=== PATIENT | female | born 1940 | race Caucasian/White ===

== ENCOUNTER 2018-02-02 07:30 | Inpatient (IN) | payer OTHER ==
[~2018-02-02] VITALS: Ht 157.5 cm; Wt 89.8 kg
[~2018-02-02 07:30] MED LIST: ALLO300T47 PO; ASPI-859 PO; CITA20SO PO; DITXL5 PO; FENO160 PO; LOSA50TA3 PO; NEU300 PO; OMEP20CA10 PO; TRAZ-126 PO
[2018-02-02] MEDS ORDERED: oxyCODONE HCL 10 MG TAB.ER.12H PO ONE ×3 (07:40→08:02)
[2018-02-02] MEDS ORDERED: GABAPENTIN 300 MG CAPSULE PO ONE (07:40)
[2018-02-02] MEDS ORDERED: ACETAMINOPHEN 500 MG TABLET PO ONE (07:40)
[2018-02-02] MEDS ORDERED: NACL 0.9% 1,000 ML IV ONE (07:40)
[2018-02-02] MEDS ORDERED: TRANEXAMIC ACID 650 MG TABLET PO ONE (07:40)
[2018-02-02] MEDS ORDERED: CEFAZOLIN 2 GM IVPB PREMIX 50 ML IV ONE ×2 (07:40→07:41)
[2018-02-02] MEDS ORDERED: CELECOXIB 200 MG CAPSULE PO ONE (07:40)
[2018-02-02] MEDS ORDERED: TRANEXAMIC ACID 650 MG TABLET ONE (07:42)
[2018-02-02] MEDS ORDERED: ACETAMINOPHEN 500 MG TABLET ONE (07:42)
[2018-02-02] MEDS ORDERED: GABAPENTIN 300 MG CAPSULE ONE (07:43)
[2018-02-02] MEDS ORDERED: CELECOXIB 200 MG CAPSULE ONE (07:43)
[2018-02-02] MEDS ORDERED: ROPIVACAINE 0.2% 550 ML INJ SCH ×2 (09:23→10:56)
[2018-02-02] MEDS ORDERED: CEFAZOLIN 1 GM IVPB PREMIX 50 ML IV SCH (09:30)
[2018-02-02] MEDS ORDERED: MORPHINE 4 MG/ML INJ. SYRINGE IVP PRN (09:30)
[2018-02-02] MEDS ORDERED: KETOROLAC TROMETHAMINE 15 MG VIAL IVP PRN ×2 (09:30)
[2018-02-02] MEDS ORDERED: PROMETHAZINE HCL 25 MG/ML AMP IVP PRN (09:30)
[2018-02-02] MEDS ORDERED: oxyCODONE HCL 5 MG TABLET PO PRN (09:30)
[2018-02-02] MEDS ORDERED: DIPHENHYDRAMINE HCL 25 MG CAPSULE PO PRN (09:30)
[2018-02-02] MEDS ORDERED: ONDANSETRON HCL 4 MG/2 ML VIAL IVP PRN ×3 (09:30→11:00)
[2018-02-02] MEDS ORDERED: SENNOSIDES 8.6 MG TABLET PO PRN (09:30)
[2018-02-02] MEDS ORDERED: TRANEXAMIC ACID 1,000 MG/10 ML VIAL IV ONE (09:35)
[2018-02-02] MEDS ORDERED: NS 100 ML BAG IV ONE (09:35)
[2018-02-02] MEDS ORDERED: LR 1,000 ML IV.SOLN IV ONE (09:35)
[2018-02-02] MEDS ORDERED: KETOROLAC TROMETHAMINE 30 MG VIAL IVP ONE (09:35)
[2018-02-02] MEDS ORDERED: MIDAZOLAM HCL 5 MG/5 ML VIAL IVP ONE (09:35)
[2018-02-02] MEDS ORDERED: EPINEPHrine 1 MG/ML AMP IV ONE (09:35)
[2018-02-02] MEDS ORDERED: MORPHINE SULFATE 10MG/10ML PF AMP EP ONE (09:35)
[2018-02-02] MEDS ORDERED: ROPIVACAINE HCL/PF 5 MG/ML 0.5% 30 ML VIAL INJ ONE (09:35)
[2018-02-02] MEDS ORDERED: BUPIVACAINE /PF 0.75% 10 ML VIAL INJ ONE (09:35)
[2018-02-02] MEDS ORDERED: VANCOMYCIN HCL 1000 MG/VIAL IV ONE (09:35)
[2018-02-02] MEDS ORDERED: POLYMYXIN 500,000/BACIT.10,000 UNITS in NS IRR 1 L IR ONE (10:03)
[2018-02-02] MEDS ORDERED: DIPHENHYDRAMINE INJ 50 MG/ML VIAL IVP PRN (11:00)
[2018-02-02] MEDS ORDERED: KETOROLAC TROMETHAMINE 30 MG VIAL IVP PRN (11:00)
[2018-02-02] MEDS ORDERED: OXYCODONE/ACETAMINOPHEN *10*mg/325 mg TABLET PO PRN (11:00)
[2018-02-02] MEDS ORDERED: NALBUPHINE HCL 10 MG/ML AMP IVP PRN (11:00)
[2018-02-02] MEDS ORDERED: fentaNYL CITRATE/PF 100 MCG/2 ML AMP IVP PRN ×2 (11:00)
[2018-02-02 13:14] VITALS: BP_SYST 130
[2018-02-02 13:25] VITALS: BP_SYST 130
[2018-02-02] MEDS: D5LR 1,000 ML IV SCH (14:49)
[2018-02-02] MEDS: ACETAMINOPHEN 500 MG TABLET PO SCH ×2 (14:51→21:06)
[2018-02-02] MEDS: CEFAZOLIN 1 GM IVPB PREMIX 50 ML IV SCH ×2 (14:58→21:06)
[2018-02-02 16:12] VITALS: BP_SYST 131
[2018-02-02] MEDS ORDERED: RIVAROXABAN 10 MG TABLET PO ONE (18:15)
[2018-02-02 20:12] VITALS: BP_SYST 141
[2018-02-02] MEDS ORDERED: GABAPENTIN 300 MG CAPSULE PO SCH (21:00)
[2018-02-02] MEDS: GABAPENTIN 300 MG CAPSULE PO SCH (21:06)
[2018-02-02] MEDS: OXYBUTYNIN CHLORIDE 5 MG TABLET PO SCH (21:07)
[2018-02-02] MEDS: CELECOXIB 200 MG CAPSULE PO SCH (21:07)
[2018-02-03] VITALS: BP_SYST 110
[2018-02-03] MEDS: oxyCODONE HCL 5 MG TABLET PO PRN ×2 (00:52→20:32)
[2018-02-03] MEDS: D5LR 1,000 ML IV SCH ×2 (00:54→15:33)
[2018-02-03] MEDS: CEFAZOLIN 1 GM IVPB PREMIX 50 ML IV SCH (05:32)
[2018-02-03] MEDS: OMEPRAZOLE 20 MG CAPSULE.DR (PriLOSEC) PO SCH (05:56)
[2018-02-03 07:24] LABS: BASOPHILS % (AUTO) 0.4 % (0.0-2.0); EOSINOPHILS # (AUTO) 0.1 K/uL (0.0-0.4); EOSINOPHILS % (AUTO) 1.8 % (0.0-4.0); HEMOGLOBIN 10.8 g/dL (12.0-16.0); LYMPHOCYTES # (AUTO) 0.7 K/uL (1.0-5.5); MEAN CORPUSCULAR HEMOGLOBIN 32 pg (27-31); MEAN CORPUSCULAR HGB CONC 34 % (32-36); MEAN CORPUSCULAR VOLUME 96 fL (79.0-98.0); MONOCYTES # (AUTO) 0.8 K/uL (0.0-1.0); MONOCYTES % (AUTO) 10.6 % (1.7-9.3); NEUTROPHILS # (AUTO) 5.7 K/uL (1.8-7.7); NEUTROPHILS % (AUTO) 78.2 % (40.0-70.0); PLATELET COUNT (AUTO) 226 K/uL (130-430); RED BLOOD CELL COUNT(AUTO) 3.33 MIL/uL (4.2-6.2); RED CELL DISTRIBUTION WIDTH 12.3 % (9.0-15.0); WHITE BLOOD COUNT (AUTO) 7.3 K/uL (4.8-10.8)
[2018-02-03 07:30] LABS: ANION GAP 5 (5-15); CALCIUM 8.6 mg/dL (8.4-11.0); CHLORIDE 104 mmol/L (98-107); CREATININE 1.72 mg/dL (0.55-1.30); GLUCOSE 155 mg/dL (70-99); POTASSIUM 4.7 mmol/L (3.5-5.1); SODIUM SERUM 140 mmol/L (136-145); UREA NITROGEN, BLOOD 33 mg/dL (8-21)
[2018-02-03 08:50] VITALS: BP_SYST 107
[2018-02-03] MEDS: FENOFIBRATE 160 MG TABLET PO SCH (09:17)
[2018-02-03] MEDS: traZODone HCL 50 MG TABLET (DESYREL) PO SCH (09:19)
[2018-02-03] MEDS: GABAPENTIN 300 MG CAPSULE PO SCH ×2 (09:19→20:32)
[2018-02-03] MEDS: ALLOPURINOL 300 MG TABLET (ZYLOPRIM) PO SCH (09:20)
[2018-02-03] MEDS: CELECOXIB 200 MG CAPSULE PO SCH ×2 (09:20→20:31)
[2018-02-03] MEDS: CITALOPRAM HYDROBROMIDE 20 MG TABLET PO SCH (09:20)
[2018-02-03] MEDS: OXYBUTYNIN CHLORIDE 5 MG TABLET PO SCH ×2 (09:25→20:33)
[2018-02-03] MEDS: ACETAMINOPHEN 500 MG TABLET PO SCH ×3 (09:26→20:32)
[2018-02-03] MEDS ORDERED: RIVAROXABAN 10 MG TABLET PO ONE (10:00)
[2018-02-03] MEDS: RIVAROXABAN 10 MG TABLET PO SCH (10:38)
[2018-02-03 12:38] VITALS: BP_SYST 126
[2018-02-03] MEDS: LOSARTAN POTASSIUM 50 MG TABLET (COZAAR) PO SCH (15:27)
[2018-02-03 16:16] VITALS: BP_SYST 135
[2018-02-03 20:00] VITALS: BP_SYST 127
[2018-02-04] MEDS: D5LR 1,000 ML IV SCH ×2 (00:01)
[2018-02-04 01:24] VITALS: BP_SYST 107
[2018-02-04] MEDS: OMEPRAZOLE 20 MG CAPSULE.DR (PriLOSEC) PO SCH (06:28)
[2018-02-04] MEDS: oxyCODONE HCL 5 MG TABLET PO PRN (06:28)
[2018-02-04 06:42] LABS: ANION GAP 2 (5-15); CALCIUM 8.5 mg/dL (8.4-11.0); CHLORIDE 103 mmol/L (98-107); CREATININE 1.82 mg/dL (0.55-1.30); GLUCOSE 140 mg/dL (70-99); SODIUM SERUM 137 mmol/L (136-145); UREA NITROGEN, BLOOD 29 mg/dL (8-21)
[2018-02-04 07:06] LABS: BASOPHILS % (AUTO) 0.4 % (0.0-2.0); EOSINOPHILS # (AUTO) 0.3 K/uL (0.0-0.4); EOSINOPHILS % (AUTO) 3.1 % (0.0-4.0); HEMATOCRIT 29.7 % (36-48); LYMPHOCYTES # (AUTO) 1.1 K/uL (1.0-5.5); LYMPHOCYTES % (AUTO) 14.1 % (20.5-51.5); MEAN CORPUSCULAR HEMOGLOBIN 32 pg (27-31); MEAN CORPUSCULAR HGB CONC 34 % (32-36); MEAN CORPUSCULAR VOLUME 95 fL (79.0-98.0); MONOCYTES # (AUTO) 1.1 K/uL (0.0-1.0); MONOCYTES % (AUTO) 13.4 % (1.7-9.3); NEUTROPHILS # (AUTO) 5.6 K/uL (1.8-7.7); PLATELET COUNT (AUTO) 197 K/uL (130-430); RED BLOOD CELL COUNT(AUTO) 3.12 MIL/uL (4.2-6.2); RED CELL DISTRIBUTION WIDTH 12.6 % (9.0-15.0); WHITE BLOOD COUNT (AUTO) 8.1 K/uL (4.8-10.8)
[2018-02-04 08:00] VITALS: BP_SYST 138
[2018-02-04] MEDS: ACETAMINOPHEN 500 MG TABLET PO SCH (09:25)
[2018-02-04] MEDS: traZODone HCL 50 MG TABLET (DESYREL) PO SCH (09:26)
[2018-02-04] MEDS: ALLOPURINOL 300 MG TABLET (ZYLOPRIM) PO SCH (09:27)
[2018-02-04] MEDS: LOSARTAN POTASSIUM 50 MG TABLET (COZAAR) PO SCH (09:27)
[2018-02-04] MEDS: OXYBUTYNIN CHLORIDE 5 MG TABLET PO SCH (09:27)
[2018-02-04] MEDS: CELECOXIB 200 MG CAPSULE PO SCH (09:27)
[2018-02-04] MEDS: CITALOPRAM HYDROBROMIDE 20 MG TABLET PO SCH (09:27)
[2018-02-04] MEDS: GABAPENTIN 300 MG CAPSULE PO SCH (09:27)
[2018-02-04] MEDS: FENOFIBRATE 160 MG TABLET PO SCH (09:29)
[2018-02-04] MEDS: RIVAROXABAN 10 MG TABLET PO SCH (09:29)
[2018-02-04 12:41] VITALS: BP_SYST 119
[2018-02-04 12:50] VITALS: BP_SYST 119
== END 2018-02-04 13:30 | disposition home health service (06) | DRG 470 ==
LOC: SMU 07:30 → STU 12:59
PROVIDERS: ADMIT Orthopaedic Surgery; ATTEND Orthopaedic Surgery
PROC: 0SRC0J9 Replacement of Right Knee Joint with Synthetic Substitute, Cemented, Open Approach (ICD-10-PCS; principal; 2018-02-02 09:30)
DX: M17.11 Unilateral primary osteoarthritis, right knee (principal); M25.761 Osteophyte, right knee; I12.9 Hypertensive chronic kidney disease with stage 1 through stage 4 chronic kidney disease, or unspecified chronic kidney disease; N18.3 Chronic kidney disease, stage 3 (moderate); E66.9 Obesity, unspecified; Z68.36 Body mass index [BMI] 36.0-36.9, adult
CPT/HCPCS: 36415; 80048; 85025; 87081; 88305; 88311; 94010; 94760; 97039; 97110-GP; 97116-GP; 97530-GP; 97535-GP; C1713; C1776; J0171; J0690; J1885; J2250; J2274; J2795; J3370; J3490; J7120

== ENCOUNTER 2022-03-09 01:56 | Inpatient (IN) | payer OTHER ==
[~2022-03-09] VITALS: Ht 162.6 cm; Wt 81.6 kg
[~2022-03-09 01:56] MED LIST changes: +ALLO-57 PO; -ALLO300T47 PO; -ASPI-859 PO; -CITA20SO PO; +CITA20SO2 PO; -OMEP20CA10 PO; +OMEP20CA15 PO; -TRAZ-126 PO; +TRAZ-251 PO
[2022-03-09 02:15] VITALS: BP_SYST 157
[2022-03-09 05:25] LABS: ANION GAP 9 (5-15); CALCIUM 9.2 mg/dL (8.4-11.0); CHLORIDE 89 mmol/L (98-107); CREATININE 1.08 mg/dL (0.55-1.30); GLUCOSE 138 mg/dL (70-99); POTASSIUM 4.1 mmol/L (3.5-5.1); UREA NITROGEN, BLOOD 10 mg/dL (8-21)
[2022-03-09 05:26] LABS: BASOPHILS % (AUTO) 0.3 % (0.0-2.0); HEMATOCRIT 36.1 % (36-48); LYMPHOCYTES # (AUTO) 0.6 K/uL (1.0-5.5); LYMPHOCYTES % (AUTO) 3.6 % (20.5-51.5); MEAN CORPUSCULAR VOLUME 95 fL (79.0-98.0); MONOCYTES # (AUTO) 1.6 K/uL (0.0-1.0); MONOCYTES % (AUTO) 9.9 % (1.7-9.3); NEUTROPHILS # (AUTO) 13.8 K/uL (1.8-7.7); NEUTROPHILS % (AUTO) 86.2 % (40.0-70.0); PLATELET COUNT (AUTO) 271 K/uL (130-430); RED BLOOD CELL COUNT(AUTO) 3.82 MIL/uL (4.2-6.2); RED CELL DISTRIBUTION WIDTH 13.1 % (9.0-15.0)
[2022-03-09 05:33] LABS: ALANINE AMINOTRANSFERASE 33 U/L (12-78); ALBUMIN 2.6 g/dL (3.4-4.8); ASPARTATE AMINOTRANSFERASE 38 U/L (10-37); TOTAL BILIRUBIN 0.8 mg/dL (0.0-1.0)
[2022-03-09] MEDS ORDERED: IPRATROPIUM/ALBUTEROL SULFATE 3 ML AMPUL.NEB (DUONEB) INH ONE (05:45)
[2022-03-09] MEDS ORDERED: AZITHROMYCIN 250 MG TABLET PO ONE (05:45)
[2022-03-09] MEDS ORDERED: cefTRIAXone 1 GM IVPB PREMIX 50 ML IV ONE (05:45)
[2022-03-09 05:50] LABS: ALCOHOL, BLOOD < 3 mg/dL (<10)
[2022-03-09] MEDS ORDERED: ASPI-1393 PO (06:04)
[2022-03-09] MEDS ORDERED: LIP10 PO (06:05)
[2022-03-09] MEDS ORDERED: PROMETHAZINE HCL/CODEINE 6.25-10 mg/5 mL UDC PO ONE (06:45)
[2022-03-09 10:15] LABS: BILIRUBIN,URINE NEGATIVE (NEGATIVE); BLOOD, URINE 2+ (NEGATIVE); CLARITY/URINE CLEAR (CLEAR); COLOR,URINE YELLOW (YELLOW); GLUCOSE,URINE NEGATIVE (NEGATIVE); KETONES,URINE NEGATIVE (NEGATIVE); LEUKOCYTE ESTERASE ,URINE NEGATIVE (NEGATIVE); NITRITE, URINE NEGATIVE (NEGATIVE); PH,URINE 6.5 (5.0-8.0); PROTEIN URINE NEGATIVE (NEGATIVE)
[2022-03-09 10:38] LABS: BACTERIA,URINE FEW /HPF (None Seen); WBC,URINE 0-3 /HPF (0-3)
[2022-03-09] MEDS ORDERED: NACL 0.9% 1,000 ML IV SCH (10:45)
[2022-03-09 15:40] LABS: ANION GAP 8 (5-15); CALCIUM 9.1 mg/dL (8.4-11.0); CHLORIDE 91 mmol/L (98-107); CREATININE 0.94 mg/dL (0.55-1.30); GLUCOSE 125 mg/dL (70-99); POTASSIUM 4.1 mmol/L (3.5-5.1); UREA NITROGEN, BLOOD 12 mg/dL (8-21)
[2022-03-09 20:30] VITALS: BP_SYST 153
[2022-03-09 20:59] VITALS: BP_SYST 153
[2022-03-09] MEDS ORDERED: cefTRIAXone 1 GM IVPB PREMIX 50 ML IV SCH (21:00)
[2022-03-09] MEDS: GABAPENTIN 300 MG CAPSULE PO SCH (21:49)
[2022-03-09] MEDS: NACL 0.9% 1,000 ML IV SCH (21:50)
[2022-03-10] VITALS (10 sets, daily range): BP systolic 130–187
[2022-03-10] MEDS ORDERED: cloNIDine HCL 0.1 MG TABLET PO ONE (02:45)
[2022-03-10 08:29] LABS: BASOPHILS % (AUTO) 0.4 % (0.0-2.0); EOSINOPHILS # (AUTO) 0.3 K/uL (0.0-0.4); EOSINOPHILS % (AUTO) 2.8 % (0.0-4.0); HEMATOCRIT 31.2 % (36-48); LYMPHOCYTES % (AUTO) 9.2 % (20.5-51.5); MEAN CORPUSCULAR VOLUME 94 fL (79.0-98.0); MONOCYTES % (AUTO) 9.4 % (1.7-9.3); NEUTROPHILS # (AUTO) 8.2 K/uL (1.8-7.7); NEUTROPHILS % (AUTO) 78.2 % (40.0-70.0); PLATELET COUNT (AUTO) 270 K/uL (130-430); RED BLOOD CELL COUNT(AUTO) 3.31 MIL/uL (4.2-6.2); RED CELL DISTRIBUTION WIDTH 12.8 % (9.0-15.0); WHITE BLOOD COUNT (AUTO) 10.5 K/uL (4.8-10.8)
[2022-03-10] MEDS ORDERED: traZODone HCL 50 MG TABLET (DESYREL) PO SCH (09:00)
[2022-03-10] MEDS ORDERED: OMEPRAZOLE Non-Formulary 20 MG CAPSULE.DR PO SCH (09:00)
[2022-03-10 09:05] LABS: ALANINE AMINOTRANSFERASE 49 U/L (12-78); ALBUMIN 1.9 g/dL (3.4-4.8); ANION GAP 7 (5-15); ASPARTATE AMINOTRANSFERASE 62 U/L (10-37); CALCIUM 8.9 mg/dL (8.4-11.0); CHLORIDE 95 mmol/L (98-107); CREATININE 0.87 mg/dL (0.55-1.30); GLUCOSE 93 mg/dL (70-99); POTASSIUM 4.3 mmol/L (3.5-5.1); THYROID STIMULATING HORMONE 0.82 uIu/mL (0.36-3.74); TOTAL BILIRUBIN 0.5 mg/dL (0.0-1.0); UREA NITROGEN, BLOOD 11 mg/dL (8-21)
[2022-03-10] MEDS: GABAPENTIN 300 MG CAPSULE PO SCH ×2 (09:14→20:41)
[2022-03-10] MEDS: ATORVASTATIN 10 MG TABLET PO SCH (09:14)
[2022-03-10] MEDS: ALLOPURINOL 300 MG TABLET (ZYLOPRIM) PO SCH (09:14)
[2022-03-10] MEDS: ASPIRIN 81 MG TABLET(ECOTRIN) PO SCH (09:14)
[2022-03-10] MEDS: CITALOPRAM HYDROBROMIDE 20 MG TABLET PO SCH (09:14)
[2022-03-10] MEDS: PANTOPRAZOLE SODIUM 40 MG TAB PO SCH (09:14)
[2022-03-10] MEDS: traZODone HCL 50 MG TABLET (DESYREL) PO SCH (09:15)
[2022-03-10 09:55] LABS: CHOLESTEROL 117 mg/dL (<200); HDL CHOLESTEROL 54 mg/dL (>55); LDL CHOLESTEROL 52 mg/dL (<100); TRIGLYCERIDES 45 mg/dL (30-150)
[2022-03-10] MEDS ORDERED: IPRATROPIUM/ALBUTEROL SULFATE 3 ML AMPUL.NEB (DUONEB) INH ONE (12:00)
[2022-03-10] MEDS: NACL 0.9% 1,000 ML IV SCH (13:00)
[2022-03-10] MEDS: guaiFENesin/DEXTROMETHORPHAN 10 ML UDC PO PRN ×2 (13:07→20:46)
[2022-03-10] MEDS: IPRATROPIUM/ALBUTEROL SULFATE 3 ML AMPUL.NEB (DUONEB) INH SCH ×2 (15:19→23:22)
[2022-03-10] MEDS: cefTRIAXone 1 GM IVPB PREMIX 50 ML IV SCH (20:41)
[2022-03-10] MEDS: AZITHROMYCIN 500 MG in NS 250 ML IV SCH (22:10)
[2022-03-11] VITALS: BP_SYST 156
[2022-03-11] MEDS: IPRATROPIUM/ALBUTEROL SULFATE 3 ML AMPUL.NEB (DUONEB) INH SCH ×6 (05:56→23:06)
[2022-03-11 08:00] VITALS: BP_SYST 161
[2022-03-11] MEDS: traZODone HCL 50 MG TABLET (DESYREL) PO SCH (08:40)
[2022-03-11] MEDS: ATORVASTATIN 10 MG TABLET PO SCH (08:40)
[2022-03-11] MEDS: PANTOPRAZOLE SODIUM 40 MG TAB PO SCH (08:40)
[2022-03-11] MEDS: CITALOPRAM HYDROBROMIDE 20 MG TABLET PO SCH (08:40)
[2022-03-11] MEDS: ALLOPURINOL 300 MG TABLET (ZYLOPRIM) PO SCH (08:40)
[2022-03-11] MEDS: GABAPENTIN 300 MG CAPSULE PO SCH ×2 (08:40→20:47)
[2022-03-11] MEDS: ASPIRIN 81 MG TABLET(ECOTRIN) PO SCH (08:40)
[2022-03-11 11:31] VITALS: BP_SYST 175
[2022-03-11 13:55] LABS: ANION GAP 5 (5-15); CALCIUM 8.8 mg/dL (8.4-11.0); CHLORIDE 92 mmol/L (98-107); CREATININE 0.98 mg/dL (0.55-1.30); GLUCOSE 112 mg/dL (70-99); POTASSIUM 4.5 mmol/L (3.5-5.1); UREA NITROGEN, BLOOD 12 mg/dL (8-21)
[2022-03-11 15:29] VITALS: BP_SYST 177
[2022-03-11] MEDS ORDERED: hydrALAZINE HCL 20 MG/ML VIAL IVP PRN (16:45)
[2022-03-11 17:00] VITALS: BP_SYST 144
[2022-03-11] MEDS: cefTRIAXone 1 GM IVPB PREMIX 50 ML IV SCH (20:47)
[2022-03-11] MEDS: AZITHROMYCIN 500 MG in NS 250 ML IV SCH (22:16)
[2022-03-12] MEDS: IPRATROPIUM/ALBUTEROL SULFATE 3 ML AMPUL.NEB (DUONEB) INH SCH ×6 (03:00→23:21)
[2022-03-12 06:17] VITALS: BP_SYST 140
[2022-03-12 08:26] VITALS: BP_SYST 155
[2022-03-12] MEDS: GABAPENTIN 300 MG CAPSULE PO SCH ×2 (09:32→20:48)
[2022-03-12] MEDS: CITALOPRAM HYDROBROMIDE 20 MG TABLET PO SCH (09:32)
[2022-03-12] MEDS: ATORVASTATIN 10 MG TABLET PO SCH (09:32)
[2022-03-12] MEDS: ASPIRIN 81 MG TABLET(ECOTRIN) PO SCH (09:33)
[2022-03-12] MEDS: PANTOPRAZOLE SODIUM 40 MG TAB PO SCH (09:33)
[2022-03-12] MEDS: ALLOPURINOL 300 MG TABLET (ZYLOPRIM) PO SCH (09:33)
[2022-03-12] MEDS: traZODone HCL 50 MG TABLET (DESYREL) PO SCH (09:33)
[2022-03-12 11:42] VITALS: BP_SYST 154
[2022-03-12 15:58] VITALS: BP_SYST 159
[2022-03-12 20:33] VITALS: BP_SYST 175
[2022-03-12 20:37] VITALS: BP_SYST 173
[2022-03-12] MEDS: cefTRIAXone 1 GM IVPB PREMIX 50 ML IV SCH (20:48)
[2022-03-12] MEDS ORDERED: amLODIPine BESYLATE 5 MG TABLET PO ONE (22:15)
[2022-03-12] MEDS: AZITHROMYCIN 500 MG in NS 250 ML IV SCH (22:42)
[2022-03-13 01:10] VITALS: BP_SYST 162
[2022-03-13] MEDS: IPRATROPIUM/ALBUTEROL SULFATE 3 ML AMPUL.NEB (DUONEB) INH SCH ×6 (03:37→23:26)
[2022-03-13 08:00] VITALS: BP_SYST 164
[2022-03-13 08:56] LABS: ANION GAP 5 (5-15); CALCIUM 9.4 mg/dL (8.4-11.0); CHLORIDE 99 mmol/L (98-107); CREATININE 0.82 mg/dL (0.55-1.30); GLUCOSE 114 mg/dL (70-99); POTASSIUM 4.1 mmol/L (3.5-5.1); UREA NITROGEN, BLOOD 8 mg/dL (8-21)
[2022-03-13] MEDS: traZODone HCL 50 MG TABLET (DESYREL) PO SCH (09:45)
[2022-03-13] MEDS: PANTOPRAZOLE SODIUM 40 MG TAB PO SCH (09:45)
[2022-03-13] MEDS: CITALOPRAM HYDROBROMIDE 20 MG TABLET PO SCH (09:45)
[2022-03-13] MEDS: ASPIRIN 81 MG TABLET(ECOTRIN) PO SCH (09:45)
[2022-03-13] MEDS: GABAPENTIN 300 MG CAPSULE PO SCH ×2 (09:46→21:00)
[2022-03-13] MEDS: ATORVASTATIN 10 MG TABLET PO SCH (09:46)
[2022-03-13 11:31] VITALS: BP_SYST 154
[2022-03-13] MEDS: ALLOPURINOL 300 MG TABLET (ZYLOPRIM) PO SCH (13:37)
[2022-03-13 15:28] VITALS: BP_SYST 167
[2022-03-13 20:00] VITALS: BP_SYST 160
[2022-03-13] MEDS: cefTRIAXone 1 GM IVPB PREMIX 50 ML IV SCH (21:00)
[2022-03-13] MEDS: AZITHROMYCIN 500 MG in NS 250 ML IV SCH (22:00)
[2022-03-14] MEDS: IPRATROPIUM/ALBUTEROL SULFATE 3 ML AMPUL.NEB (DUONEB) INH SCH ×4 (03:00→15:30)
[2022-03-14 08:00] VITALS: BP_SYST 146
[2022-03-14] MEDS: CITALOPRAM HYDROBROMIDE 20 MG TABLET PO SCH (08:52)
[2022-03-14] MEDS: ALLOPURINOL 300 MG TABLET (ZYLOPRIM) PO SCH (08:52)
[2022-03-14] MEDS: traZODone HCL 50 MG TABLET (DESYREL) PO SCH (08:53)
[2022-03-14] MEDS: PANTOPRAZOLE SODIUM 40 MG TAB PO SCH (08:53)
[2022-03-14] MEDS: ASPIRIN 81 MG TABLET(ECOTRIN) PO SCH (08:53)
[2022-03-14] MEDS: ATORVASTATIN 10 MG TABLET PO SCH (08:53)
[2022-03-14] MEDS: GABAPENTIN 300 MG CAPSULE PO SCH (08:53)
[2022-03-14 12:00] VITALS: BP_SYST 177
[2022-03-14 14:16] VITALS: BP_SYST 158
[2022-03-14] MEDS ORDERED: ALPRAZolam 0.25 MG TABLET PO ONE (16:00)
== END 2022-03-14 17:50 | DRG 604 ==
LOC: SED 01:56 → STU 05:36 → OBSVTOIN 03-12 09:47 → SMU 03-13 15:32
PROVIDERS: ADMIT Internal Medicine; ATTEND Internal Medicine
DX: S41.112A Laceration without foreign body of left upper arm, initial encounter (principal); E43 Unspecified severe protein-calorie malnutrition; E87.1 Hypo-osmolality and hyponatremia; R42 Dizziness and giddiness; E86.0 Dehydration; W18.39XA Other fall on same level, initial encounter; Z96.651 Presence of right artificial knee joint; Z20.822 Contact with and (suspected) exposure to COVID-19; E78.1 Pure hyperglyceridemia; E78.5 Hyperlipidemia, unspecified; G89.4 Chronic pain syndrome; I10 Essential (primary) hypertension; M06.9 Rheumatoid arthritis, unspecified; N32.81 Overactive bladder; F32.A Depression, unspecified; K21.9 Gastro-esophageal reflux disease without esophagitis; Y93.89 Activity, other specified; Y92.89 Other specified places as the place of occurrence of the external cause; Y99.8 Other external cause status; J98.8 Other specified respiratory disorders
CPT/HCPCS: 36415; 70450-TC; 71045; 72125-TC; 76376; 80048; 80053; 80061; 81000; 83605; 83735; 83880; 84443; 84484; 85025; 87040; 93005; 93306; 94640; 94760; 97110-GP; 97116-GP; 97530-GP; G0378; G0482; J0360; J0456; J0696; J7050; Q0144